=== PATIENT | male | born 1990 | race Caucasian/White ===

== ENCOUNTER → 2022-01-24 10:21 | Outpatient (CLI) | payer SELFPAY | PROVIDERS: Referring Provider Family Medicine; Visit Provider Family Medicine | DX: Z01.89 Encounter for other specified special examinations (principal) ==

== ENCOUNTER → 2023-12-17 07:22 | Outpatient (CLI) | payer OTHER, SELFPAY ==
[2023-12-17 08:12] LABS: Add Manual Diff / Slide Review NO; Basophils Absolute Auto 0 /uL (0-100); Basophils Percent Auto 0.5 % (0-2); Eosinophils Absolute Auto 100 /uL (0-450); Eosinophils Percent Auto 3.3 % (2-4); Hematocrit 42.5 % (41-53); Hemoglobin 14.4 g/dL (13.5-17.5); Lymphocytes Absolute Auto 1700 /uL (1100-4500); Lymphocytes Percent Auto 41.3 % (25-40); Mean Corpuscular HGB Conc 33.9 % (30-36); Mean Corpuscular Hemoglobin 29.5 PG (26-34); Monocytes Absolute Auto 500 /uL (0-900); Monocytes Percent Auto 12.6 % (3-14); Neutrophils Absolute Auto 1800 /uL (1500-7000); Neutrophils Percent Auto 42.3 % (50-75); Platelet Count 267 X10^3/uL (150-400); Red Blood Cell Count 4.88 X10^6/uL (4.5-5.9); Red Cell Distribution Width 12.9 % (11.6-14.8); White Blood Cell Count 4.2 X10^3/uL (4.5-11.0)
[2023-12-17 08:38] LABS: Alanine Aminotransferase 26 IU/L (<50); Albumin 4.2 g/dL (3.5-5.0); Albumin Globulin Ratio 1.7 (1.0-2.8); Alkaline Phosphatase 69 U/L (38-126); Aspartate Aminotransferase 33 IU/L (17-59); BUN Creatinine Ratio 15.8 (6-22); Bilirubin Total 0.7 mg/dL (0.2-1.3); Blood Urea Nitrogen 23 mg/dL (9-20); Calcium 9.5 mg/dL (8.4-10.2); Carbon Dioxide 31 mmol/L (22-32); Chloride 102 mmol/L (98-107); Cholesterol 246 mg/dL (140-199); Estimated Glomerular Filt Rate > 60 mL/min (>60); Globulin 2.5 g/dL (1.7-4.1); Glucose 96 mg/dL (70-100); HDL Cholesterol 73 mg/dL (40-60); HEMOLYSIS < 15 (0-50); LDL Cholesterol Calculated 162 mg/dL (<100); Potassium 4.5 mmol/L (3.4-5.1); Sodium 137 mmol/L (137-145); Total Protein 6.7 g/dL (6.3-8.2); Triglycerides 55 mg/dL (35-150); VLDL Cholesterol Calculated 11 mg/dL (2-30)
[2023-12-17 08:48] LABS: Vitamin D 25 Hydroxy (D3) 62.7 ng/mL (30.0-100.0)
== END ==
PROVIDERS: PCP Family Medicine; Referring Provider Family Medicine; Visit Provider Family Medicine
DX: Z00.00 Encounter for general adult medical examination without abnormal findings (principal); R79.89 Other specified abnormal findings of blood chemistry; M25.50 Pain in unspecified joint
CPT/HCPCS: 36415; 80053; 80061; 82306; 82533; 85025

== ENCOUNTER 2024-09-15 18:50 | Emergency (ER) | payer OTHER, SELFPAY ==
[2024-09-15 19:22] VITALS: BP 123/88; PULSE 83; RESP 16; TEMP 37.1; O2SAT 97; BMI 25.8
--- NOTE | 2024-09-15 19:42 | EKG_ITS ---
[address] [address] Test Date: 2024-09-15 Pat Name: Lazaro Perry Department: [facility] Room: Gender: Male [employer] Operator: DANA VALDEZ : 1990 Requested By: Order Number: [id number] Reading MD: Asif Self Measurements Intervals [place] Rate: 61 P: 50 GA: 210 QRS: 71 QRSD: 104 T: 46 QT: 416 QTc: 418 Interpretive Statements Sinus rhythm with 1st degree AV block Incomplete right bundle branch block Electronically Signed On 09-25-2024 13:45:54 PDT by Asif Self
[2024-09-15 20:00] LABS: INR 1.1 (0.9-1.3); Prothrombin Time 12.6 SECONDS (9.4-12.5)
[2024-09-15 20:02] LABS: PTT Partial Thromboplastin Tim 30 SECONDS (25.1-36.5)
[2024-09-15 20:03] LABS: Alanine Aminotransferase 30 IU/L (<50); Albumin 4.6 g/dL (3.5-5.0); Albumin Globulin Ratio 1.4 (1.0-2.8); Alkaline Phosphatase 69 U/L (38-126); Blood Urea Nitrogen 27 mg/dL (9-20); Calcium 9.4 mg/dL (8.4-10.2); Carbon Dioxide 27 mmol/L (22-32); Chloride 101 mmol/L (98-107); Estimated Glomerular Filt Rate 51 mL/min (>60); Globulin 3.2 g/dL (1.7-4.1); Glucose 107 mg/dL (70-99); HEMOLYSIS < 15 (0-50); Lactate (Lactic Acid) 0.8 mmol/L (0.7-2.1); Lipase 136 U/L (23-300); Potassium 4.0 mmol/L (3.4-5.1); Sodium 136 mmol/L (137-145); Total Protein 7.8 g/dL (6.3-8.2)
[2024-09-15 20:20] LABS: Procalcitonin 0.209 ng/mL (<0.5)
[2024-09-15 20:31] LABS: Add Manual Diff / Slide Review NO; Hematocrit 43.8 % (41-53); Hemoglobin 15.4 g/dL (13.5-17.5); Lymphocytes Absolute Auto 1200 /uL (1100-4500); Mean Corpuscular HGB Conc 35.1 % (30-36); Mean Corpuscular Hemoglobin 30.2 PG (26-34); Mean Corpuscular Volume 86.0 fL (80-100); Platelet Count 240 X10^3/uL (150-400)
[2024-09-15 21:33] VITALS: BP 138/84; PULSE 60; RESP 16; O2SAT 96
--- NOTE | 2024-09-15 22:27 | ED.SKABFB ---
HPI - Skin/Abscess/Foreign Bdy General Chief complaint: Skin/Abscess/Foreign Body Stated complaint: infection? Left thumb and forearm Time Seen by Provider: 09/15/24 22:23 Source: patient Mode of arrival: Family Vehicle Limitations: no limitations History of Present Illness HPI narrative: 34-year-old male patient, otherwise healthy, who noticed some tender erythema at the base of the left thumb earlier this evening and then noticed a red streak going up his forearm. He felt somewhat flushed but no documented fever. No other symptoms. No known injury. Related Data Previous Rx's ?Medication ?Instructions ?Recorded cephalexin 500 mg capsule 500 mg PO BID 7 days #14 caps 09/15/24 Allergies Allergy/AdvReac Type Severity Reaction Status Date / Time hepatitis vaccine AdvReac Intermediate swelling Uncoded 09/15/24 19:35 Review of Systems Review of Systems ROS Unobtainable: All systems reviewed & are unremarkable except as noted in HPI and below Integumentary/Breasts Skin/Breast: Reports system reviewed and no additional complaints, except as documented and Reports as per HPI Patient History Medical History Dog bite of extremity Polyarthralgia Well adult exam Hearing decreased Fractures Right ankle pain (~2019) Surgical History Anesthesia History of inguinal hernia repair (~2013) Family History Grandfather Cancer History of heart disease Hypertension Grandmother Hypertension Hyperlipidemia Grandfather Cancer Hypertension Stroke Exam Initial Vital Signs Initial Vital Signs: Vital Signs Temperature 98.7 F 09/15/24 19:22 Pulse Rate 83 09/15/24 19:22 Respiratory Rate 16 09/15/24 19:22 Blood Pressure 123/88 09/15/24 19:22 Pulse Oximetry 97 09/15/24 19:22 Oxygen Delivery Method Room Air 09/15/24 19:22 Const General: cooperative, healthy appearing, comfortable, well developed and No acute distress Resp Effort & Inspection: normal respiratory effort Auscultation: clear to auscultation bilaterally Cardio Rate: regular rate Rhythm: regular rhythm Heart Sounds: no murmurs Skin Other: Slight erythema at the base of the left thumbnail which is slightly tender but no fluctuance or evidence of fluid/pus collection. There is also subtle red streaks on the volar forearm. Otherwise no rash or skin abnormalities Neuro General: patient alert, patient awake and patient oriented x3 Course Orders Ordered: Discontinued Medications Cephalexin HCl (Cephalexin 250 Mg Capsule) 500 mg PO NOW ONE Stop: 09/15/24 22:27 Last Admin: 09/15/24 22:43 Dose: 500 mg Documented By: MOISÉS Ondansetron HCl (Ondansetron 4 Mg/2 Ml Inj) 4 mg IV NOW PRN PRN Reason: Nausea And Vomiting Ondansetron HCl (Ondansetron 4 Mg Odt) 4 mg PO NOW PRN PRN Reason: Nausea And Vomiting Vital Signs Vital signs: Vital Signs - 8 hr 09/15/24 19:22 09/15/24 21:33 09/15/24 21:33 Temperature 98.7 F Pulse Rate 83 60 Respiratory Rate 16 16 Blood Pressure 123/88 138/84 Pulse Oximetry 97 96 Oxygen Delivery Method Room Air Room Air MDM - Skin/Abscess/Foreign Bdy Differential Diagnosis Differential diagnosis: Likely cellulitis Condition is:: Well Controlled Condition is at treatment goal?: Yes Medical Records Attestation: I reviewed the patient's medical records. Lab Data Attestation: I reviewed the patient's lab results. Lab results narrative: Unremarkable 09/15/24 19:35 09/15/24 19:35 Labs: Lab Results 09/15/24 Range/Units 19:35 WBC 4.1 L (4.5-11.0) X10^3/uL RBC 5.10 (4.5-5.9) X10^6/uL Hgb 15.4 (13.5-17.5) g/dL Hct 43.8 (41-53) % MCV 86.0 (80-100) fL MCH 30.2 (26-34) PG MCHC 35.1 (30-36) % RDW 13.0 (11.6-14.8) % Plt Count 240 (150-400) X10^3/uL Neut % (Auto) 57.7 (50-75) % Lymph % (Auto) 29.8 (25-40) % [place] % (Auto) 11.8 (3-14) % Eos % (Auto) 0.3 L (2-4) % Baso % (Auto) 0.4 (0-2) % Neut # (Auto) 2300 (4447-1340) /uL Lymph # (Auto) 1200 (7182-2448) /uL [place] # (Auto) 500 (0-900) /uL Eos # (Auto) 0 (0-450) /uL Baso # (Auto) 0 (0-100) /uL PT 12.6 H (9.4-12.5) SECONDS INR 1.1 (0.9-1.3) APTT 30 (25.1-36.5) SECONDS Sodium 136 L (137-145) mmol/L Potassium 4.0 (3.4-5.1) mmol/L Chloride 101 (98-107) mmol/L Carbon Dioxide 27 (22-32) mmol/L BUN 27 H (9-20) mg/dL Creatinine 1.76 H (0.66-1.25) mg/dL Estimated GFR 51 L (>60) mL/min BUN/Creatinine Ratio 15.3 (6-22) Glucose 107 H (70-99) mg/dL Lactate 0.8 (0.7-2.1) mmol/L Calcium 9.4 (8.4-10.2) mg/dL Total Bilirubin 0.5 (0.2-1.3) mg/dL AST 34 (17-59) IU/L ALT 30 (<50) IU/L Alkaline Phosphatase 69 (38-126) U/L Total Protein 7.8 (6.3-8.2) g/dL Albumin 4.6 (3.5-5.0) g/dL Globulin 3.2 (1.7-4.1) g/dL Albumin/Globulin Ratio 1.4 (1.0-2.8) Lipase 136 (23-300) U/L Procalcitonin 0.209 (<0.5) ng/mL ECG Data Attestation: I personally reviewed and interpreted this ECG as follows: (Sinus rhythm with first-degree AV block. Incomplete RBBB. No ischemic changes) MDM Narrative Medical decision making narrative: Patient has a small area of skin infection possible paronychia near the left thumb with no abscess. However there is lymphangitis streaks on the left forearm. We will treat with warm soaks to the thumb and cephalexin, 500 b.i.d. for 7 days. Follow up with primary care or ER if not improving Discharge Plan Departure Patient Disposition: Home Clinical Impression: Acute paronychia of left thumb, Lymphangitis Instructions: DI for Paronychia, DI for Lymphangitis-Adult Activity Restrictions/Additional Instructions: Assessment: Paronychia infection of the left thumb base with accompanying lymphangitis through the forearm. Plan: Warm packs intermittently and 7 days of cephalexin. Ibuprofen as needed. Follow-up with your doctor for recheck. Return to the ER if worse Prescriptions: New cephalexin 500 mg capsule 500 mg PO BID 7 Days Qty: 14 0RF Referrals: Ho Zurita DO [Primary Care Provider, Family Practice] Stand Alone Forms: Patient Portal/API
== END 2024-09-15 22:59 | disposition home or self-care (01) ==
PROVIDERS: Emergency Provider Emergency Medicine; PCP Family Medicine
DX: I89.1 Lymphangitis (principal)
CPT/HCPCS: 80053; 83605; 83690; 84145; 85025; 85610; 85730; 87040; 93005; 99283; 99284